=== PATIENT | female | born 2005 | race Caucasian/White ===

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

== ENCOUNTER 2023-08-24 15:21 | Outpatient (REF) | payer MEDICAID, SELFPAY | END 2023-08-24 15:22 | disposition home or self-care (01) | LOC: NCHCN 15:21 | PROVIDERS: PCP Student in an Organized Health Care Education/Training Program; Visit Provider Physician Assistant Medical | DX: J03.90 Acute tonsillitis, unspecified (principal) | CPT/HCPCS: 87077; 87070 ==

== ENCOUNTER 2023-09-05 11:39 | Emergency (ER) | payer MEDICAID, SELFPAY ==
[2023-09-05 11:41] VITALS: BP 123/80; PULSE 104; RESP 18; TEMP 36.8; O2SAT 98
--- NOTE | 2023-09-05 13:30 | ED.GENADUL_ITS ---
Discharge Plan Disposition Patient Disposition: Home Condition: Good Discharge Details Clinical Impression: Dental implant pain, Dental infection Primary Care Provider: Sherin Whitney ED Provider: Christine Pascual Home Meds and New Rx's Prescriptions: New penicillin V potassium 500 mg tablet 500 mg PO TID 5 Days Qty: 15 0RF Continued acetaminophen [Tylenol Extra Strength] 500 MG tablet 2 tab PO PRN PRN ferrous sulfate [Feosol] 325 mg (65 mg iron) tablet 325 mg PO QDAY Discharge Instructions Instructions: Dental Pain, Tooth Abscess ED Additional Instructions: I am unable to visualize any type of abscess. However, I am concerned for dental infection given the progression in your history of implant in this area. Please try to brush your teeth at least twice per day patient remained. Is also help with care of your gingiva. Please follow-up with dentist soon as pos sible for reevaluation and definitive care. Please take the antibiotics as prescribed. Even if symptoms improve, please take the entire course. If you develop any fever/chills, swelling or other new/worsening symptoms, please seek care urgently once again. Referrals: Sherin Whitney MD [Primary Care Provider] - [facility] General Date/Time Provider Initiated Documentation: 09/05/23 11:45 . Limitations to Documentation: no limitations . Information obtained by: patient and RN notes reviewed . History of Present Illness 18 year old F presents to the emergency department with the chief complaint of right frontal dental pain, described as severe, Quality is described as stabbing, and is localized to the mouth. Patient reports radiation to (to right maxillary sinus). Patient started experiencing this day(s) (2) and it has been constant. No relieving factors improve symptom(s), No exacerbating factors reported . Patient notes no other symptoms.. Patient did receive the following treatments prior to arrival, none Related Data Home Medications Medication Instructions Recorded Confirmed acetaminophen 500 mg tablet 2 tab PO PRN PRN 11/02/17 09/05/23 (Tylenol Extra Strength) ferrous sulfate 325 mg (65 mg 325 mg PO QDAY 09/05/23 09/05/23 iron) tablet (Feosol) penicillin V potassium 500 mg 500 mg PO TID 5 days #15 tabs 09/05/23 tablet Previous Rx's Medication Instructions Recorded penicillin V potassium 500 mg 500 mg PO TID 5 days #15 tabs 09/05/23 tablet Allergies Allergy/AdvReac Type Severity Reaction Status Date / Time prochlorperazine AdvReac Intermediate Other (See Verified 09/05/23 11:43 [From Compazine] Comment) General Stated Complaint: DentalOral RADHA: 4 Review of Systems Constitutional Constitutional: Reports as per HPI, Denies chills, Denies fever(s) and Denies headache(s) Eyes Eyes: Denies change in vision and Denies irritation ENT Ears, Nose, Mouth, and Throat: Reports as per HPI, Reports dental pain, Denies dysphagia, Denies dry mouth, Denies otalgia, Reports facial pain, Denies headache(s), Denies hoarseness, Denies nasal congestion, Denies odynophagia and Denies sore throat Cardiovascular Cardiovascular: Reports as per HPI and Denies chest pain Respiratory Respiratory: Reports as per HPI and Denies cough Gastrointestinal Gastrointestinal: Denies dysphagia and Denies odynophagia Integumentary/Breasts Skin/Breast: Reports as per HPI, Denies erythema, Denies rash and Denies skin pain Neurologic Neurologic: Reports as per HPI and Denies headache(s) Exam Const General: cooperative, healthy appearing, comfortable, no acute distress, well developed and well groomed Nutritional Appearance: average body habitus and well nourished Orientation: alert and awake [facility] Head: normal to inspection, normocephalic and atraumatic Ears: hearing grossly normal bilaterally, external ears normal and TM's normal bilaterally General nose exam: external nose normal and nares normal Face and sinus: normal facial exam, sinuses nontender and face symmetric Teeth and gingiva: caries, fair dentition and other (pain along lingual side #7 tooth, no swelling or fluctuance) Throat: posterior oropharynx normal, tonsils normal and uvula midline Eyes General: appearance normal, both eyes and all related structures Neck Neck: normal visual inspection, full ROM, no lymphadenopathy, supple and no anterior neck swelling Resp Effort & Inspection: normal respiratory effort, able to speak in complete sentences and no respiratory distress Cardio Rate: regular rate Rhythm: regular rhythm Skin General skin exam: no rashes or lesions noted Trauma: no lacerations or abrasions Neuro General: patient alert and patient awake Cognition: normal cognition Speech: speech normal Gait: normal gait Course Vital Signs Vital signs: Vital Signs Temperature 36.8 C 09/05/23 11:41 Pulse 104 H 09/05/23 11:41 Respiratory Rate 18 09/05/23 11:41 Blood Pressure 123/80 09/05/23 11:41 Pulse Oximetry 98 09/05/23 11:41 Temperature 36.8 C 09/05/23 11:41 Temperature Source Core 09/05/23 11:41 Pulse 104 H 09/05/23 11:41 Respiratory Rate 18 09/05/23 11:41 Respiratory Effort Normal, Non-Labored 09/05/23 11:44 Blood Pressure 123/80 09/05/23 11:41 Blood Pressure Position Sitting 09/05/23 11:41 Pulse Oximetry 98 09/05/23 11:41 Oxygen Delivery Method Room Air 09/05/23 11:41 Oxygen Flow Rate 0 09/05/23 11:41 Pain Level 10 09/05/23 11:41 Medical Decision Making Patient is a 18-year-old female presenting today with chief complaint of right frontal dental pain. Patient has remote history of multiple dental fractures requiring The Front 3 Teeth. Pain Began a Few Days Ago and Has Been Steadily Increasing. She Does Not Have an Active Dentist, Is Requesting Her Records from Her Previous Dentist to new location. She denies fevers/chills. Is concerned that she has another tooth growing in above the #7 that is pushing downward. Has had issues with dentition for years per patient report. Denies , LMP 1 wk ago. On exam, patient appears non-toxic. Hemodynamically stable, afebrile. No obvious facial swelling. Pain with palpation over the lingual side of the #7 tooth that has cap in place. Fiar dentition, signficant plaque, encouraged brushing. Po ssible gingivitis with the plaque build up but no swelling, fluctuance to suggest abscess. She does reprot that pain radiates into right maxillary sinus but not reproducible on exam. Noprmal posterior oropharynx, no change in voice, no swelling under tongue. Will treat for possible infection. Wondering if the cap over the tooht is increasing risk of infection while limiting my physical exam. Will treat with pen VK. Encouraged definitive care with dentist. Offered topical pain relief which patient declined. Advised NSAId and APAP. Encouraged hydration and dental care. Return precautions discussed. All of her questions and concerns were addressed, she is in agreement with this plan. 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 Medical History Acne Oral contraceptive use Snoring Vision problem WEARS GLASSES Surgical History Tooth extraction Social History Smoking/Tobacco Use Status: Current every day Tobacco Type: e-cigarettes Smoking risk assessment performed?: Yes Alcohol Intake: never Drug use: Daily Substance use type: marijuana Do you feel safe at home: Yes Do you feel safe in your relationship?: Yes Female Reproductive History Menstrual Age of Menarche: 10 Duration of menses: 6-7 days History History 0 Para Hx # Term Pregnancies Multiple births Hx # Pregnancies Ectopic pregnancies AB induced Hx Number of Living Children AB spontaneous
[2023-09-05 13:57] VITALS: BP 123/80; PULSE 104; PULSE 96; RESP 16; RESP 18; TEMP 36.8; O2SAT 98
== END 2023-09-05 13:59 | disposition home or self-care (01) ==
PROVIDERS: Emergency Provider Physician Assistant; PCP Student in an Organized Health Care Education/Training Program
DX: K08.89 Other specified disorders of teeth and supporting structures (principal); K04.7 Periapical abscess without sinus
CPT/HCPCS: 99283

== ENCOUNTER 2023-10-06 09:48 | Emergency (ER) | payer SELFPAY ==
[2023-10-06 09:50] VITALS: BP 109/71; PULSE 90; RESP 14; TEMP 37.2; O2SAT 96
[2023-10-06 09:58] VITALS: BP 109/71; PULSE 90; RESP 14; TEMP 37.2; O2SAT 96
--- NOTE | 2023-10-06 10:15 | ED.GENADUL_ITS ---
Discharge Plan Disposition Patient Disposition: Home Condition: Good Discharge Details Clinical Impression: Acute pharyngitis Primary Care Provider: Sherin Whitney ED Provider: Christine Pascual Home Meds and New Rx's Prescriptions: Continued acetaminophen [Tylenol Extra Strength] 500 MG tablet 2 tab PO PRN PRN ferrous sulfate [Feosol] 325 mg (65 mg iron) tablet 325 mg PO QDAY Discharge Instructions Instructions: Sore Throat, Adult ED Additional Instructions: Your strep testing was negative here today. This is likely viral illness. Please encourage hydration. May use Tylenol and ibuprofen as needed to help with discomfort. May also try rvre-raz-fqiyudt lozenges, the Mucinex plus pain relief can be of benefit and have good numbing effect. There is also gsap-bcn-kdygodh sprays if that would be helpful. May advance her diet as tolerated. If you develop difficulty breathing, inability stay hydrated or other new/worsening symptoms please seek care urgently once again. Otherwise, please follow-up with primary care in 1 to 2 weeks for reevaluation. You received one dose of steroids here which may help with some of the tonsil swelling. This may take several hours to have full effect. Referrals: Sherin Whitney MD [Primary Care Provider] - [facility] General Date/Time Provider Initiated Documentation: 10/06/23 09:54 . Limitations to Documentation: no limitations . Information obtained by: patient and RN notes reviewed . History of Present Illness 18 year old F presents to the emergency department with the chief complaint of sore throat, described as moderate and similar to prior episodes (reports was treated for strep one month ago), Quality is described as burning, and is localized to the mouth (throat). Patient reports no radiation. Patient started experiencing this day(s) (2) and it has been constant. No relieving factors improve symptom(s), Eating worsens symptoms . Patient notes loss of appetite (associates with sore throat and not wanting to eat and cause pain); denies chest pain, cough, fever/chills, nausea/vomiting, rash and shortness of breath. Patient did receive the following treatments prior to arrival, none Related Data Home Medications ?Medication ?Instructions ?Recorded ?Confirmed acetaminophen 500 mg tablet 2 tab PO PRN PRN 11/02/17 10/06/23 (Tylenol Extra Strength) ferrous sulfate 325 mg (65 mg 325 mg PO QDAY 09/05/23 10/06/23 iron) tablet (Feosol) Allergies Allergy/AdvReac Type Severity Reaction Status Date / Time prochlorperazine (From AdvReac Intermediate Other (See Verified 10/06/23 09:54 Compazine) Comment) General Stated Complaint: Sorethroat RADHA: 4 Review of Systems Constitutional Constitutional: Reports as per HPI and Denies headache(s) Eyes Eyes: Reports as per HPI, Denies eye discharge and Denies irritation ENT Ears, Nose, Mouth, and Throat: Reports as per HPI and Denies headache(s) Cardiovascular Cardiovascular: Reports as per HPI, Denies chest pain and Denies dyspnea Respiratory Respiratory: Reports as per HPI and Denies dyspnea Gastrointestinal Gastrointestinal: Reports as per HPI, Denies abdominal pain, Denies change in bowel habits, Denies nausea and Denies vomiting Integumentary/Breasts Skin/Breast: Reports as per HPI and Denies rash Neurologic Neurologic: Reports as per HPI and Denies headache(s) Exam Const General: cooperative, healthy appearing, comfortable, no acute distress, well developed and well groomed Nutritional Appearance: average body habitus and well nourished Orientation: alert and awake [facility] Head: normal to inspection, normocephalic and atraumatic Ears: hearing grossly normal bilaterally, external ears normal and TM's normal bilaterally General nose exam: external nose normal and nares normal Face and sinus: normal facial exam, sinuses nontender and face symmetric Mouth: oral mucosae normal, lip normal, tongue normal, oropharynx normal and moist mucous membranes Teeth and gingiva: dentition normal Throat: uvula midline, abnormal tonsil bilaterally erythema, exudates and hypert rophy 2+, no peritonsillar masses, uvula not displaced and no uvular edema Eyes General: appearance normal, both eyes and all related structures Neck Neck: normal visual inspection and full ROM Resp Effort & Inspection: normal respiratory effort, able to speak in complete sentences and no respiratory distress Auscultation: clear to auscultation bilaterally, no rales, no rhonchi and no wheezes Cardio Rate: regular rate Rhythm: regular rhythm Heart Sounds: S1 normal and S2 normal GI Inspection: normal to inspection Palpation: soft, no splenomegaly and nontender Skin General skin exam: no rashes or lesions noted Neuro General: patient alert and patient awake Cognition: normal cognition Speech: speech normal Gait: normal gait Psych Appearance: grossly normal and well kempt Mental Status: mental status grossly normal Speech and Movement: speech and movement normal Course Vital Signs Vital signs: Vital Signs Temperature 37.2 C 10/06/23 09:50 Pulse 90 10/06/23 09:50 Respiratory Rate 14 10/06/23 09:50 Blood Pressure 109/71 10/06/23 09:50 Pulse Oximetry 96 10/06/23 09:50 Temperature 37.2 C 10/06/23 09:58 Temperature Source Skin 10/06/23 09:58 Pulse 90 10/06/23 09:58 Respiratory Rate 14 10/06/23 09:58 Respiratory Effort Normal, Non-Labored 10/06/23 09:58 Blood Pressure 109/71 10/06/23 09:58 Blood Pressure Position Sitting 10/06/23 09:58 Pulse Oximetry 96 10/06/23 09:58 Oxygen Delivery Method Room Air 10/06/23 09:58 Oxygen Flow Rate 0 10/06/23 09:58 Pain Level 8 10/06/23 09:58 Lab/Test Results Lab/Test Results: 10/06/23 09:51 Tonsil - Not Specified Group A Streptococcus Culture - Pending POC Strep Test-DAGOBERTO(Rapid) Start: 10/06/23 10:00 Freq: .Rapid Strep Test Status: Active Protocol: Document 10/06/23 10:01 MICHAEL (Rec: 10/06/23 10:01 MICHAEL [id number]) Strep test-DAGOBERTO(Rapid)-POC POC-Strep test-DAGOBERTO (Rapid) Negative POC-Strep test-DAGOBERTO (Rapid) Negative Medical Decision Making Patient is a pleasant 18-year-old female presenting today with chief complaint of sore throat. She reports this began a few days ago. She has a friend that has had similar illness. She reports that she has had some congestion but denies any significant cough. She reports that the tonsillar pain can induce her to clear her throat frequently. She denies any fevers. Denies any abdominal tenderness. No fatigue. Has not been exposed anybody with mono. While she has pain with eating and drinking, she is still able to get fluids down. Patient reports that she does have a history of strep throat, was last treated 1 month ago. He is questioning she has this again. On exam, patient appears nontoxic. She is resting comfortably no acute distress. Patient is afebrile. HEENT exam is significant for bilateral tonsillar swelling, exudates and erythema. Swelling does appear quite uncomfortable for the patient. However, she is handling secretions well. No uvular displacement or unilateral swelling to suggest peritonsillar abscess. No swelling under the tongue or elsewhere about the mouth or neck. She does have a palpable bilateral lymphadenopathy. HEENT exam otherwise normal. Lungs are clear. Abdomen is benign with no left upper quadrant tenderness. Patient's rapid strep testing was negative. Will hold off on any antibiotics at this time. I encouraged supportive care. Given the degree of discomfort as well as the degree of swelling, I did discuss steroids with the patient which she is amenable to. Will give dose of dexamethasone here. We discussed supportive care. Return precautions were discussed. Encouraged follow-up with primary care. Will call with any positive results. All of her questions and concerns were addressed and she is in agreement this plan. 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 Medical History Acne Oral contraceptive use Snoring Vision problem WEARS GLASSES Surgical History Tooth extraction Social History Smoking/Tobacco Use Status: Current every day Tobacco Type: e-cigarettes Smoking risk assessment performed?: Yes Alcohol Intake: never Drug use: Daily Substance use type: marijuana Do you feel safe at home: Yes Do you feel safe in your relationship?: Yes Female Reproductive History Menstrual Age of Menarche: 10 Duration of menses: 6-7 days History History 0 Para Hx # Term Pregnancies Multiple births Hx # Pregnancies Ectopic pregnancies AB induced Hx Number of Living Children AB spontaneous PAWSS Have you Been Recently Intoxicated or Drunk Within the Last 30 days?: No Have you Ever Experienced Previous Episodes of Alcohol Withdrawal?: No Have you ever Experienced Withdrawal Seizures?: No Have you ever Experienced Delirium Tremens(DT)s?: No Have you ever undergone Alcohol Rehabilitation Treatment (i.e, inpt ot outpatient treatment programs)?: No Have you ever Experienced Blackouts?: No Have you ever Combined Alcohol with other Downers within the last 90 days?: No Have you ever Combined Alcohol with any other Substance of Abuse during the last 90 days?: No Positive Blood Alcohol level on Presentation? [PCS.BAL]: No Evidence of Increased Autonomic Activity (i.e. HR>120, tremor, sweating, agitation, nausea)?: No Result: 0
[2023-10-06] MEDS: Dexamethasone 10 MG/ML VIAL PO (10:51)
--- NOTE | 2023-10-08 20:36 | W.ED.FU ---
Date of service: 10/08/23 Time of Service: 20:36 Follow Up Plan: Spoke with patient after her culture came back positive for strep, she is feeling better and sounds well on the phone, will send in prescription for amoxicillin to the pharmacy for her and advised to follow-up with her PCP and return precautions given
== END 2023-10-06 11:01 | disposition home or self-care (01) ==
PROVIDERS: Emergency Provider Physician Assistant; PCP Student in an Organized Health Care Education/Training Program
DX: J02.9 Acute pharyngitis, unspecified (principal); F17.290 Nicotine dependence, other tobacco product, uncomplicated
CPT/HCPCS: 87880; 99283; 87081; J1100

== ENCOUNTER 2024-01-24 08:47 | Emergency (ER) | payer BC, SELFPAY ==
[2024-01-24 08:49] VITALS: BP 118/67; PULSE 89; RESP 14; TEMP 36.8; O2SAT 98
[2024-01-24] MEDS: predniSONE 20 MG TAB 40 MG PO (09:22)
[2024-01-24] MEDS: Acetaminophen 325 MG TAB 650 MG PO (09:22)
[2024-01-24 09:28] LABS: Mono Screening Negative (Negative)
--- NOTE | 2024-01-24 14:57 | ED.GENADUL_ITS ---
Discharge Plan Disposition Patient Disposition: Home Condition: Stable Discharge Details Clinical Impression: Acute tonsillitis Primary Care Provider: Sherin Whitney ED Provider: Suad Fields Home Meds and New Rx's Prescriptions: Continued acetaminophen [Tylenol Extra Strength] 500 MG tablet 2 tab PO PRN PRN ferrous sulfate [Feosol] 325 mg (65 mg iron) tablet 325 mg PO QDAY ondansetron HCl 4 mg tablet 4 mg PO Q8H PRN Discharge Instructions Instructions: Sore Throat, Adult ED Additional Instructions: Take prednisone 40 daily for the next 3 days Take Tylenol as needed for breakthrough pain Regular fluids Please return with fever, chills, or should you have any new or worsening c omplaints Your monotest has not returned, I will notify you if it is positive I have included some information regarding mono, however at this time please know that you have not tested positive yet Referrals: Sherin Whitney MD [Primary Care Provider] - 2 days Discharge Data Discharge Date/Time-TO BE ENTERED AT DEPARTURE: 01/24/24 09:29 HPI General Date/Time Provider Initiated Documentation: 01/24/24 08:57 . HPI Narrative: This 18-year-old female who presents with 5 days of sore throat and left ear discomfort. Denies any chest pain or shortness of breath. Denies any globus sensation or chance of . States a friend was sick with mononucleosis approximately a month ago. Came in today secondary to persistence of symptoms. Denies any nausea or vomiting. Related Data Home Medications ?Medication ?Instructions ?Recorded ?Confirmed acetaminophen 500 mg tablet 2 tab PO PRN PRN 11/02/17 01/24/24 (Tylenol Extra Strength) ferrous sulfate 325 mg (65 mg 325 mg PO QDAY 09/05/23 01/24/24 iron) tablet (Feosol) ondansetron HCl 4 mg tablet 4 mg PO Q8H PRN 01/24/24 01/24/24 Allergies Allergy/AdvReac Type Severity Reaction Status Date / Time prochlorperazine (From AdvReac Intermediate Other (See Verified 01/24/24 08:54 Compazine) Comment) General Stated Complaint: Sorethroat RADHA: 4 Exam Narrative Exam Narrative: Oropharynx patent, uvula midline, submandibular lymphadenopathy, lungs clear to auscultation, maintaining secretions, tonsillar exudates on left, no evidence of abscess formation phonation within normal limits, no trismus, TMs clear bilaterally, no occipital lymphadenopathy, Course Vital Signs Vital signs: Vital Signs Temperature 36.8 C 01/24/24 08:49 Pulse 89 01/24/24 08:49 Respiratory Rate 14 01/24/24 08:49 Blood Pressure 118/67 01/24/24 08:49 Pulse Oximetry 98 01/24/24 08:49 Temperature 36.8 C 01/24/24 08:49 Temperature Source Oral 01/24/24 08:49 Pulse 89 01/24/24 08:49 Respiratory Rate 14 01/24/24 08:49 Respiratory Effort Normal, Non-Labored 01/24/24 08:52 Blood Pressure 118/67 01/24/24 08:49 Blood Pressure Position Sitting 01/24/24 08:49 Pulse Oximetry 98 01/24/24 08:49 Oxygen Delivery Method Room Air 01/24/24 08:49 Oxygen Flow Rate 0 01/24/24 08:49 Pain Level 9 01/24/24 08:49 Lab/Test Results Lab/Test Results: 01/24/24 08:58 Tonsil - Not Specified Group A Streptococcus Culture - Pending Laboratory Tests Range/Units 01/24/24 09:11 Monoscreen (Negative) Negative Medical Decision Making 18-year-old female in no acute distress, uvula midline, oropharynx patent, no trismus, strep and mononucleosis negative. Supportive care encouraged, given prednisone here and for 2 additional days at home for pain relief. Indication for antibiotics at this time, strep culture pending. Specifically no evidence of retropharyngeal abscess or peritonsillar abscess on clinical exam today. 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 Medical History Acne Oral contraceptive use Snoring Vision problem WEARS GLASSES Surgical History Tooth extraction Social History Smoking/Tobacco Use Status: Current every day Tobacco Type: e-cigarettes Smoking risk assessment performed?: Yes Alcohol Intake: never Drug use: Daily Substance use type: marijuana Housing: house Do you feel safe at home: Yes Do you feel safe in your relationship?: Yes Female Reproductive History Menstrual Age of Menarche: 10 Duration of menses: 6-7 days History History 0 Para Hx # Term Pregnancies Multiple births Hx # Pregnancies Ectopic pregnancies AB induced Hx Number of Living Children AB spontaneous
--- NOTE | 2024-01-25 08:11 | NUR.NOTE ---
Nursing Note: Received call from pt that [facility] did not have her prescription for Prednisone. Prescriber Suad Jordan made aware and is sending it electronically
== END 2024-01-24 09:29 | disposition home or self-care (01) ==
PROVIDERS: Emergency Provider Physician Assistant; PCP Student in an Organized Health Care Education/Training Program
DX: J03.90 Acute tonsillitis, unspecified (principal); F17.290 Nicotine dependence, other tobacco product, uncomplicated
CPT/HCPCS: 36415; 99283; 86308; 87081; J7512

== ENCOUNTER 2024-07-27 12:48 | Emergency (ER) | payer BC, SELFPAY ==
[2024-07-27 12:52] VITALS: BP 116/87; PULSE 137; RESP 20; TEMP 36.8; O2SAT 98
--- NOTE | 2024-07-27 13:36 | ED.GENADUL_ITS ---
Discharge Plan Disposition Patient Disposition: Home Condition: Stable Discharge Details Clinical Impression: Painful menstruation, Nausea and vomiting Primary Care Provider: Unknown,Unknown ED Provider: Kiko Madrid Home Meds and New Rx's Prescriptions: New ondansetron 4 mg tablet,disintegrating 4 mg PO Q8H PRNQty: 15 0RF Discharge Instructions Instructions: Menstrual Cramps (DC), Nausea and Vomiting, Adult ED Additional Instructions: Please follow-up with your primary care physician. Please follow-up with gastroenterology. Return to the emergency department immediately for any worsening or new concerning symptoms. Stand Alone Forms: Work Release HPI General Mode of arrival: ambulatory . Date/Time Provider Initiated Documentation: 07/27/24 12:55 . Limitations to Documentation: no limitations . Information obtained by: patient . HPI Narrative: HISTORY OF PRESENT ILLNESS The patient presents with nausea and vomiting. She experienced severe menorrhagia this morning, causing significant illness and vomiting, preventing her from attending work. She has been under considerable stress for the past 2-3 weeks due to her mother's cancer diagnosis. She is sexually active and does not have a primary care physician. She reports persistent gastrointestinal issues, including nausea and difficulty maintaining food intake, for years. Her last substantial meal was a week ago; since then, she has only consumed half a small durham of rice and a handful of chips. These symptoms have been lifelong. She was diagnosed with anemia and prescribed iron supplements, which increased her appetite but did not resolve her symptoms. She has not undergone endoscopic procedures. She uses marijuana but reports worsened symptoms, including loss of appetite and sleep disturbances, when abstaining. Of note, patient would not have sought care today other than her work required her to have a work note. Related Data Home Medications ?Medication ?Instructions ?Recorded ?Confirmed ondansetron 4 mg disintegrating 4 mg PO Q8H PRN #15 tabs 07/27/24 tablet Previous Rx's ?Medication ?Instructions ?Recorded ondansetron 4 mg disintegrating 4 mg PO Q8H PRN #15 tabs 07/27/24 tablet Allergies Allergy/AdvReac Type Severity Reaction Status Date / Time prochlorperazine (From AdvReac Intermediate Other (See Verified 07/27/24 12:59 Compazine) Comment) General Stated Complaint: Abd Prob RADHA: 3 Review of Systems All systems reviewed & are unremarkable except as noted in HPI and below Gastrointestinal Gastrointestinal: Reports nausea and Reports vomiting Exam Const General: cooperative and no acute distress [facility] Mouth: moist mucous membranes Eyes Conjunctivae: normal conjunctivae Sclera: normal sclerae Resp Auscultation: clear to auscultation bilaterally, no rales, no rhonchi and no wheezes Cardio Rate: regular rate and not tachycardic Rhythm: regular rhythm GI Palpation: soft, not firm, no guarding, no masses, not rigid and nontender Skin General skin exam: no rashes or lesions noted Neuro General: patient alert, patient awake and tone normal Extrem General: no edema Psych Appearance: grossly normal Mental Status: mental status grossly normal Affect: anxious affect Course Vital Signs Vital signs: Vital Signs Temperature 36.8 C 07/27/24 12:52 Pulse 137 H 07/27/24 12:52 Respiratory Rate 20 07/27/24 12:52 Blood Pressure 116/87 07/27/24 12:52 Pulse Oximetry 98 07/27/24 12:52 Temperature 36.8 C 07/27/24 12:52 Temperature Source Oral 07/27/24 12:52 Pulse 137 H 07/27/24 12:52 Respiratory Rate 20 07/27/24 12:52 Blood Pressure 116/87 07/27/24 12:52 Blood Pressure Position Sitting 07/27/24 12:52 Pulse Oximetry 98 07/27/24 12:52 Oxygen Delivery Method Room Air 07/27/24 12:52 Oxygen Flow Rate 0 07/27/24 12:52 Pain Level 6 07/27/24 13:06 Lab/Test Results Lab/Test Results: POC- Test(urine) Negative Medical Decision Making ASSESSMENT AND PLAN Initial Assessment: Patient presents with intense menstrual period causing significant discomfort and vomiting, nausea, lifelong difficulty keeping food down, and significant stress due to mother's cancer diagnosis. Patient anxious and tachycardic on arrival. Normotensive. On my examination heart rate 96. Differential Diagnosis: - Menorrhagia: Intense menstrual period causing significant discomfort and vomiting. Conduct urine test to rule out -related bleeding. Provide work note for today. - Nausea and vomiting: Possibly related to menstrual period and stress. Prescribe ondansetron for nausea. Advise frequent sips of fluids to maintain electrolyte balance and hydration. Further evaluation if symptoms persist. - Anemia: History of anemia and lifelong difficulty keeping food down. Iron pills increased appetite but did not resolve symptoms. Refer to director of critical care for further evaluation and management. - Stress-related issues: Significant stress due to mother's cancer diagnosis, possibly contributing to gastrointestinal symptoms. Refer to primary care physician for comprehensive health management, including stress-related issues. ED Course: - Conduct urine test to rule out -related bleeding. HCG neg. - Provide work note for today. - Prescribe ondansetron for nausea. - Discussed treatment options including IV fluid which patient declined providing informed refusal. I discussed oral rehydration and advise frequent sips of fluids to maintain electrolyte balance and hydration. - Refer to director of critical care for further evaluation and management. - Refer to primary care physician for comprehensive health management. Final Assessment: Patient's symptoms likely related to intense menstrual period, stress, and longstanding gastrointestinal issues. Treatment includes ondansetron for nausea, hydration advice, and referrals for further evaluation. Clinical Impression: - Menorrhagia - Nausea and vomiting - Stress-related issues Disposition: - Discharge - Follow-Up: Refer to director of critical care and primary care physician for further evaluation and management. Patient Education: Advised frequent sips of fluids to maintain electrolyte balance and hydration. Discussed potential hypersensitivity to marijuana and recommended trying a break period. MDM Components Evaluation: - Number of Differential Diagnoses or Management Options: Menorrhagia, Nausea and vomiting, Anemia, Stress-related issues - Amount and Complexity of Data Reviewed: Urine test, patient history - Risk of Complication and Morbidity or Mortality: Risk of dehydration and electrolyte imbalance due to vomiting and difficulty keeping food down. Stress- related exacerbation of gastrointestinal symptoms. This document was written with the assistance of MICHELLE Valero. The patient consented to its use. 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 Medical History Snoring Acne Vision problem WEARS GLASSES Surgical History Tooth extraction Social History Smoking/Tobacco Use Status: Current every day Tobacco Type: cigarettes Years smoked: 1 Smoking risk assessment performed?: Yes Alcohol Intake: current Alcohol Intake frequency: a few times a week Alcohol type: beer and hard liquor Drug use: Daily Substance use type: marijuana Housing: house Do you feel safe at home: Yes Do you feel safe in your relationship?: Yes Female Reproductive History Menstrual Age of Menarche: 10 Duration of menses: 6-7 days History History 0 Para Hx # Term Pregnancies Multiple births Hx # Pregnancies Ectopic pregnancies AB induced Hx Number of Living Children AB spontaneous
== END 2024-07-27 14:23 | disposition home or self-care (01) ==
PROVIDERS: Emergency Provider Student in an Organized Health Care Education/Training Program
DX: N94.6 Dysmenorrhea, unspecified (principal); R11.2 Nausea with vomiting, unspecified
CPT/HCPCS: 81025; 99283

== ENCOUNTER 2024-08-21 20:41 | Emergency (ER) | payer BC, SELFPAY ==
[2024-08-21 20:44] VITALS: BP 127/69; PULSE 68; RESP 24; TEMP 36.7; O2SAT 98
--- NOTE | 2024-08-21 20:59 | ED.GENADUL_ITS ---
Discharge Plan Disposition Patient Disposition: Home Condition: Stable Discharge Details Clinical Impression: Pain due to dental caries Primary Care Provider: Unknown,Unknown ED Provider: Kelley Skelton Home Meds and New Rx's Prescriptions: New amoxicillin-pot clavulanate 875-125 mg tablet 1 tab PO BID 10 Days Qty: 20 0RF oxycodone-acetaminophen [Percocet] 5-325 mg tablet 1 tab PO Q6H PRN (Reason: pain) Qty: 4 0RF Rx Instructions: Take one tablet every 6 hours as needed for severe pain. No Action ondansetron 4 mg tablet,disintegrating 4 mg PO Q8H PRNQty: 15 0RF Discharge Instructions Instructions: Dental Pain ED Additional Instructions: Please use the HurriCaine gel to 3 times daily as needed. Take the antibiotic with yogurt or a probiotic as directed. Take the pain medication for moderate to severe pain. Do not drive while taking the medication. Please see a Dentist. Follow up with primary care provider in 3-5 days. Return to ED sooner if any worsening or concerns. Please take Ibuprofen with food every 4-6 hours as needed for pain and swelling. Stand Alone Forms: Work Release Referrals: Primary Care Provider [Outside, Family Practice] - 2 weeks HPI General Mode of arrival: ambulatory . Date/Time Provider Initiated Documentation: 08/21/24 20:45 . Limitations to Documentation: no limitations . Information obtained by: patient, RN notes reviewed and old records reviewed . HPI Narrative: 19-year-old right upper molar pain. Patient reports that she was told she needed this tooth pulled approximately a year ago but never had the procedure done. Reports that last few days pain has been increasing, no area of fluctuance or abscess noted. Speaking in full sentences no facial swelling. She does have dental michael with the nerve exposed. I did offer the calcium hydroxide filling but patient declined. Related Data Home Medications ?Medication ?Instructions ?Recorded ?Confirmed ondansetron 4 mg disintegrating 4 mg PO Q8H PRN #15 ta bs 07/27/24 08/21/24 tablet amoxicillin 875 mg-potassium 1 tab PO BID 10 days #20 tabs 08/21/24 clavulanate 125 mg tablet oxycodone-acetaminophen 5 mg-325 1 tab PO Q6H PRN pain #4 tabs 08/21/24 mg tablet (Percocet) Previous Rx's ?Medication ?Instructions ?Recorded ondansetron 4 mg disintegrating 4 mg PO Q8H PRN #15 ta bs 07/27/24 tablet amoxicillin 875 mg-potassium 1 tab PO BID 10 days #20 tabs 08/21/24 clavulanate 125 mg tablet oxycodone-acetaminophen 5 mg-325 1 tab PO Q6H PRN pain #4 tabs 08/21/24 mg tablet (Percocet) Allergies Allergy/AdvReac Type Severity Reaction Status Date / Time prochlorperazine (From AdvReac Intermediate Other (See Verified 08/21/24 20:48 Compazine) Comment) General Stated Complaint: DentalOral RADHA: 4 Review of Systems ENT Ears, Nose, Mouth, and Throat: Reports dental pain Exam [facility] Teeth and gingiva: caries (Number 3) Teeth image: 2 1. Dental Michael with pulp exposed. Throat: posterior oropharynx normal and tonsils normal Course Vital Signs Vital signs: Vital Signs Temperature 36.7 C 08/21/24 20:44 Pulse 68 08/21/24 20:44 Respiratory Rate 24 08/21/24 20:44 Blood Pressure 127/69 08/21/24 20:44 Pulse Oximetry 98 08/21/24 20:44 Temperature 36.7 C 08/21/24 20:44 Temperature Source Oral 08/21/24 20:44 Pulse 68 08/21/24 20:44 Respiratory Rate 24 08/21/24 20:44 Blood Pressure 127/69 08/21/24 20:44 Blood Pressure Position Sitting 08/21/24 20:44 Pulse Oximetry 98 08/21/24 20:44 Oxygen Delivery Method Room Air 08/21/24 20:44 Oxygen Flow Rate 0 08/21/24 20:44 Pain Level 10 08/21/24 20:44 Medical Decision Making 19-year-old right upper molar pain. Patient reports that she was told she needed this tooth pulled approximately a year ago but never had the procedure done. Reports that last few days pain has been increasing, no area of fluctuance or abscess noted. Speaking in full sentences no facial swelling. Noted a dental michael with the nerve exposed. I did offer the calcium hydroxide filling but patient declined. No trismus, no fever. Will give HurriCaine gel, Augmentin twice daily, and percocet to go home with. This text was generated using Nuance dictation system, please disregard any oddities of phrase or misspellings. 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 Medical History Snoring Acne Vision problem WEARS GLASSES Surgical History Tooth extraction Social History Smoking/Tobacco Use Status: Current every day Tobacco Type: cigarettes Years smoked: 1 Smoking risk assessment performed?: Yes Alcohol Intake: current Alcohol Intake frequency: a few times a week Alcohol type: beer and hard liquor Drug use: Daily Substance use type: marijuana Housing: house Do you feel safe at home: Yes Do you feel safe in your relationship?: Yes Female Reproductive History Menstrual Age of Menarche: 10 Duration of menses: 6-7 days History History 2 0 Para Hx # Term Pregnancies Multiple births Hx # Pregnancies Ectopic pregnancies AB induced Hx Number of Living Children AB spontaneous
[2024-08-21] MEDS: Amoxicillin 875/Clav. 125 TAB PO (21:14)
[2024-08-21] MEDS: oxyCODONE 5 mg/Acetaminophen 325 mg TAB 1 TAB PO (21:14)
[2024-08-21] MEDS: Benzocaine 20% Gel 30 GM JAR MM (21:14)
[2024-08-21] MEDS: Amox. 875/Clav. 125, 2 TABS/BTL 1 TAB PO (21:14)
== END 2024-08-21 21:21 | disposition home or self-care (01) ==
PROVIDERS: Emergency Provider Registered Nurse Emergency
DX: R68.84 Jaw pain; K02.63 Dental caries on smooth surface penetrating into pulp
CPT/HCPCS: 99283 ×2

== ENCOUNTER 2024-11-17 16:57 | Outpatient (REF) | payer BC, SELFPAY | END 2024-11-17 16:58 | disposition home or self-care (01) | LOC: NCHCN 16:57 | PROVIDERS: Visit Provider Nurse Practitioner Family | DX: R11.2 Nausea with vomiting, unspecified (principal) | CPT/HCPCS: 87077; 87086; 87186 ==

== ENCOUNTER 2025-02-28 09:45 | Emergency (ER) | payer BC, SELFPAY ==
[2025-02-28 09:50] VITALS: BP 119/71; PULSE 112; RESP 22; TEMP 36.3; O2SAT 99
[2025-02-28 10:07] VITALS: BP 108/73; PULSE 98; RESP 22; O2SAT 98
[2025-02-28 10:10] LABS: Abs Immature Grans 0.01 10^3/uL (0.0-0.06); HCT 39.9 % (36.0-46.0); HGB 13.9 g/dL (11.2-15.7); Immature Grans % 0.2 %; MCH 30.7 pg (27.0-33.0); MCHC 34.8 % (32.0-36.0); MCV 88 fL (80-95); MPV 10.4 fL (8.0-11.0); Platelet Count 252 10^3/uL (130-400); RBC 4.53 10^6/uL (3.93-5.22); RDW 12.7 % (11.7-14.6); RDW-SD 41.1 fL; WBC 6.28 10^3/uL (4.4-10.8)
--- NOTE | 2025-02-28 10:15 | RT.EKG_ITS ---
APPROVED REPORT Exam: Resting ECG Reason for Exam: L lower chest pain Patient Location: E HR:85 bpm ECG Measurements Heart Rate 85 AXIS OK 116 P 72 QRSd 83 QRS 82 QT 392 T 79 QTc 461 Conclusion Sinus rhythm...normal P axis, V-rate 60- 99 Atrial premature complex...SV complex w/ short R-R interval Nonspecific T abnrm, anterolateral leads...T <-0.10mV, I aVL V2-V6 No STEMI
[2025-02-28] MEDS: Normal Saline 1,000 ML 1000 ML IV (10:19)
[2025-02-28] MEDS: Pantoprazole 40 MG VIAL IVP (10:19)
[2025-02-28] MEDS: Ondansetron 4 MG/2 ML VIAL IVP (10:19)
--- NOTE | 2025-02-28 10:21 | ED.GENADUL_ITS ---
Discharge Plan Disposition Patient Disposition: Home Condition: Stable Discharge Details Clinical Impression: Rib pain on left side Primary Care Provider: None,None ED Provider: Rubin García Home Meds and New Rx's Prescriptions: Continued ondansetron 4 mg tablet,disintegrating 4 mg PO Q8H PRNQty: 15 0RF Discharge Instructions Instructions: Costochondritis, Chest Pain, Adult ED Additional Instructions: You were seen in the emergency department for your left lower rib pain versus left upper quadrant abdominal pain, your CT chest shows no acute abnormality, CT abdomen and pelvis shows no acute abnormality, your labs showed no elevation of white blood cells, no electrolyte abnormalities, no abnormalities whatsoever. There is no pneumonia, we ruled out a blood clot in your lungs with a negative D-dimer blood test, there is no elevation of cardiac enzymes, this may be musculoskeletal pain between the ribs, costochondritis versus an abdominal migraine or other pathology but your vitals are perfectly normal and we are reassured that there is no life-threat occurring. Please follow-up with your primary care provider, return for any severe acute worsening especially fever or other emergent concerns. Stand Alone Forms: Portal Information Discharge Data Discharge Date/Time-TO BE ENTERED AT DEPARTURE: 02/28/25 13:00 HPI General Date/Time Provider Initiated Documentation: 02/28/25 09:56 . HPI Narrative: 19 year-old female presents to ED today by POV/ambulating with her boyfriend with a chief complaint of L lower rib/LUQ pain, severe and sharp with onset yesterday- then she had nausea/vomiting. Quality described as sharp pain, no radiation to hemoptysis, cough, shortness of breath, central chest pain, diarrhea, dysuria, bowel changes. Severity is described as severe. Palliating factors include nothing specific attempted. Provoking factors include nothing specific. Patient not anticoagulated. Related Data Home Medications ?Medication ?Instructions ?Recorded ?Confirmed ondansetron 4 mg disintegrating 4 mg PO Q8H PRN #15 ta bs 07/27/24 02/28/25 tablet Previous Rx's ?Medication ?Instructions ?Recorded ondansetron 4 mg disintegrating 4 mg PO Q8H PRN #15 ta bs 07/27/24 tablet Allergies Allergy/AdvReac Type Severity Reaction Status Date / Time prochlorperazine (From AdvReac Intermediate Other (See Verified 02/28/25 09:53 Compazine) Comment) General Stated Complaint: Nausea/Vomit/Diar RADHA: 3 Review of Systems All systems reviewed & are unremarkable except as noted in HPI and below Exam Narrative Exam Narrative: GENERAL APPEARANCE: Well-nourished, non-toxic, awake and alert, atraumatic, no acute distress. SKIN: Warm, pink, dry, intact, without rashes/lesions/ulcerations. HEAD: Normocephalic, atraumatic, normal hair distribution for gender/age. EYES: Normal conjunctiva, no exudates on lids/lashes. ENT: Nares patent, no circumoral cyanosis, no facial swelling NECK: Supple, trachea midline, painless cervical ROM. LUNGS/CHEST: Lungs CTA bilaterally-no adventitious lung sounds diffusely, no focally diminished or absent lung sounds, non-labored respirations, normal A/P diameter, symmetrical expansion, no chest wall deformity, left axillary tenderness in the rib cage without crepitus HEART (CV/PV): Regular rate and rhythm without murmur, no peripheral edema, no JVD. ABDOMEN: Soft, non-distended, no guarding left upper quadrant tenderness without rebound tenderness, no epigastric tenderness, no CVA tenderness to percussion bilaterally, negative Pearson sign. MSK: Normal ROM, no swelling/deformity to bilateral UEs or LEs, moving all extremities without weakness, no cyanosis, spine midline without tenderness, normal curvature. NEURO: Mental Status AAOx4 - alert to person, place, time, events No facial droop, no forehead involvement. Motor: No focal weakness - strength 5/5 in bilateral UEs and LEs, proximal and distal, symmetric. Sensory: sensation intact to light touch globally. Gait normal: patient ambulated without ataxia into ED room. PSYCH: euthymic, cooperative, pleasant, appropriate speech Course Vital Signs Vital signs: Vital Signs Temperature 36.3 C L 02/28/25 09:50 Pulse 112 H 02/28/25 09:50 Respiratory Rate 22 02/28/25 09:50 Blood Pressure 119/71 02/28/25 09:50 Pulse Oximetry 99 02/28/25 09:50 Temperature 36.3 C L 02/28/25 09:50 Temperature Source Oral 02/28/25 09:50 Pulse 98 H 02/28/25 10:07 Respiratory Rate 22 02/28/25 10:07 Blood Pressure 108/73 02/28/25 10:07 Blood Pressure Mean 84 02/28/25 10:07 Blood Pressure Position Sitting 02/28/25 09:50 Pulse Oximetry 98 02/28/25 10:07 Oxygen Delivery Method Room Air 02/28/25 10:07 Oxygen Flow Rate 0 02/28/25 10:07 Pain Level 9 02/28/25 09:50 Lab/Test Results Lab/Test Results: Laboratory Tests Range/Units 02/28/25 10:01 WBC (4.4-10.8) 10^3/uL 6.28 RBC (3.93-5.22) 10^6/uL 4.53 Hgb (11.2-15.7) g/dL 13.9 Hct (36.0-46.0) % 39.9 MCV (80-95) fL 88 MCH (27.0-33.0) pg 30.7 MCHC (32.0-36.0) % 34.8 RDW (11.7-14.6) % 12.7 Plt Count (130-400) 10^3/uL 252 MPV (8.0-11.0) fL 10.4 Immature Gran % % 0.2 Neutrophils % % 63.3 Lymphocytes % % 28.7 Monocytes % % 6.7 Eosinophils % % 0.6 Basophils % % 0.5 Nucleated RBC % (0.0-0.3) % 0.0 Absolute Neutrophils (1.2-6.7) 10^3/uL 3.98 Absolute Lymphocytes (1.2-3.4) 10^3/uL 1.80 Absolute Monocytes (0.1-0.8) 10^3/uL 0.42 Absolute Eosinophils (0.0-0.7) 10^3/uL 0.04 Absolute Basophils (0.0-0.2) 10^3/uL 0.03 VBG Lactate (<or=2.0) mmol/L 1.0 Medical Decision Making This dictation utilizes [id number] dictation software and may contain unedited grammatical errors. 19 year-old female presents to ED today by POV/ambulating with her boyfriend with a chief complaint of L lower rib/LUQ pain, severe and sharp with onset yesterday- then she had nausea/vomiting. Quality described as sharp pain, no radiation to hemoptysis, cough, shortness of breath, central chest pain, diarrhea, dysuria, bowel changes. Severity is described as severe. Palliating factors include nothing specific attempted. Provoking factors include nothing specific. Patients' medical history: Oral contraceptive use. Family and social history: Noncontributory. Pertinent exam findings / vital signs include tachycardic on arrival at 112, left axillary tenderness versus left upper quadrant tenderness without rebound tenderness, no CVA tenderness percussion bilaterally, lung sounds clear diffusely with no focally diminished or absent lung sounds. Differential / pathologies of concern include pneumothorax, PE, colitis versus gastroenteritis, ACS, pneumonia. Diagnostic studies of: - CBC, CMP, lactate, D-dimer, magnesium, troponin, BNP, lipase, EKG, CT chest without contrast, CT ABD/pelvis with contrast. - CBC shows no acute abnormality - D-dimer negative - Lactate 1.0 - CMP with only mild low potassium which was repleted with 40 mill equivalents p.o. and will replete with normal p.o. intake - Magnesium within normal limits - Troponin negative with reliable onset - BNP negative - Lipase negative - CT chest without any findings - CT ABD/pelvis without any acute findings - EKG shows sinus rhythm at 85 bpm after being roomed in the ED, P waves followed by narrow complex QRS with normal axis, normal intervals, no ST changes or abnormalities, has slight T wave inversion in V2, no priors Interventions of: - IVF 1 L NS, 1 g p.o. Tylenol, 10 mg p.o. Toradol, 40 mill equivalents p.o. potassium, 40 mg IV Protonix, 4 mg IV Zofran. ED Course/Assessment/Plan: 19-year-old female presents with right axillary lower rib tenderness, pain with deep inspiration, versus left upper quadrant tenderness with some nausea starting yesterday, her cardiac workup is negative, D-dimer negative low PERC score, CT chest shows no pneumonia or pneumothorax, CT ABD/pelvis shows no acute findings within the abdominal organs, her labs are completely benign, counseled her that this is possibly costochondritis versus abdominal muscle strain from vomiting, counseled on applying heat to the area and take Tylenol and ibuprofen, strict return criteria for any emergent concerns. Findings not consistent with ACS, PE, pneumothorax, severe enteritis or colitis, electrolyte abnormality, pancreatitis. Disposition of Rib Pain on Left Side. Patient verbalized understanding of the plan and return to ED criteria and engaged in shared decision making. Medical Records Medical records reviewed: Yes I reviewed the patient's medical records. Imaging Data Radiologic Study: Attestation: I personally reviewed and interpreted this imaging study as follows: Imaging: CT Scan Radiologist's impression: Exam: CT Chest Without Contrast; Diagnostic Exam date and time: 02/28/2025 11:33 AM Age: 19 years old Clinical indication: Pain; Left-sided TECHNIQUE: Imaging protocol: Diagnostic computed tomography of the chest without contrast. 3D rendering (Not supervised by radiologist): MIP and/or 3D reconstructed images were created by the technologist. COMPARISON: CT NECK W 06/14/2020 4:04 PM FINDINGS: Lungs: Unremarkable. No consolidation. No masses. Pleural spaces: Unremarkable. No pneumothorax. No pleural effusion. Heart: Unremarkable. No cardiomegaly. No pericardial effusion. Coronary arteries: No coronary artery calcification. Lymph nodes: Unremarkable. No enlarged lymph nodes. Vasculature: Unremarkable. No aortic aneurysm. Bones/joints: Unremarkable. No acute fracture. Soft tissues: Unremarkable. IMPRESSION: No acute findings. Dictated and Authenticated by: Vianey Shin MD. Radiologic Study #2: Attestation: I personally reviewed and interpreted this imaging study as follows: Imaging: CT Scan Radiologist's impression: Exam: CT Abdomen And Pelvis With Contrast Exam date and time: 02/28/2025 11:35 AM Age: 19 years old Clinical indication: Abdominal pain; Localized; Left lower quadrant (llq) TECHNIQUE: Imaging protocol: Computed tomography of the abdomen and pelvis with contrast. Contrast material: OMNI 350; Contrast volume: 65 ml; Contrast route: INTRAVENOUS (IV); COMPARISON: CT CHEST WO 02/28/2025 11:33 AM FINDINGS: Liver: Normal. No mass. Gallbladder and biliary ducts: Normal. No calcified stones. No ductal dilation. Pancreas: Normal. No ductal dilation. Spleen: Normal. No splenomegaly. Adrenal glands: Normal. No mass. Kidneys and ureters: Normal. No hydronephrosis. Stomach and bowel: Intraluminal hyperdensity in the stomach and small bowel, likely ingested. No bowel wall thickening or obstruction. Appendix: No evidence of appendicitis. Intraperitoneal space: Unremarkable. No free air. No significant fluid collection. Vasculature: Unremarkable. No abdominal aortic aneurysm. Lymph nodes: Unremarkable. No enlarged lymph nodes. Urinary bladder: Unremarkable as visualized. Reproductive: Unremarkable as visualized. Bones/joints: Unremarkable. No acute fracture. Soft tissues: Unremarkable. IMPRESSION: No acute findings. Dictated and Authenticated by: Vianey Shin MD. Lab Data Lab results reviewed: Yes I reviewed the patient's lab results. Labs: Laboratory Tests Range/Units 02/28/25 02/28/25 10:01 10:34 WBC (4.4-10.8) 10^3/uL 6.28 RBC (3.93-5.22) 10^6/uL 4.53 Hgb (11.2-15.7) g/dL 13.9 Hct (36.0-46.0) % 39.9 MCV (80-95) fL 88 MCH (27.0-33.0) pg 30.7 MCHC (32.0-36.0) % 34.8 RDW (11.7-14.6) % 12.7 Plt Count (130-400) 10^3/uL 252 MPV (8.0-11.0) fL 10.4 Immature Gran % % 0.2 Neutrophils % % 63.3 Lymphocytes % % 28.7 Monocytes % % 6.7 Eosinophils % % 0.6 Basophils % % 0.5 Nucleated RBC % (0.0-0.3) % 0.0 Absolute Neutrophils (1.2-6.7) 10^3/uL 3.98 Absolute Lymphocytes (1.2-3.4) 10^3/uL 1.80 Absolute Monocytes (0.1-0.8) 10^3/uL 0.42 Absolute Eosinophils (0.0-0.7) 10^3/uL 0.04 Absolute Basophils (0.0-0.2) 10^3/uL 0.03 D-Dimer (<500) ng/mlFEU 236 VBG Lactate (<or=2.0) mmol/L 1.0 Sodium (136-145) mmol/L 143 Potassium (3.5-5.1) mmol/L 3.2 L Chloride (98-107) mmol/L 106 Carbon Dioxide (20.0-31.0) mmol/L 25.6 Anion Gap (3-11) mmol/L 11.4 H BUN (9-23) mg/dL 10 Creatinine (0.55-1.02) mg/dL 0.70 Est GFR (CKD-EPI 2020) (mL/min/1.73m2) 104.96 Glucose (74-106) mg/dL 99 Calcium (8.3-10.6) mg/dL 10.1 Magnesium (1.6-2.6) mg/dL 1.8 Total Bilirubin (0.2-1.2) mg/dL 1.0 AST (<34) U/L 28 ALT (10-49) U/L 13 Alkaline Phosphatase (46-116) U/L 115 Troponin I (<35) ng/L < 3 NT-Pro-B Natriuret Pep (<300) pg/mL 83 Total Protein (5.7-8.2) g/dL 8.0 Albumin (3.2-5.0) g/dL 4.7 Lipase (<53) U/L 25 PFSH All Active Problems (Updated 02/28/25 @ 12:43 by GUNJAN Mendez) Rib pain on left side (Acute) Decrease in appetite (Acute) Weight loss (Acute) Scoliosis concern (Acute) Globus sensation (Acute) Thyroid nodule (Acute) Tracheal calcification (Acute) Strep throat (Acute) Oral contraceptive use (Acute) 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 Medical History Snoring Acne Vision problem WEARS GLASSES Surgical History Tooth extraction Social History Smoking/Tobacco Use Status: Current every day Tobacco Type: cigarettes Years smoked: 1 Smoking risk assessment performed?: Yes Alcohol Intake: current Alcohol Intake frequency: a few times a week Alcohol type: beer and hard liquor Drug use: Daily Substance use type: marijuana Housing: house Do you feel safe at home: Yes Do you feel safe in your relationship?: Yes Female Reproductive History Menstrual Age of Menarche: 10 Duration of menses: 6-7 days History History 0 Para Hx # Term Pregnancies Multiple births Hx # Pregnancies Ectopic pregnancies AB induced Hx Number of Living Children AB spontaneous
[2025-02-28 10:30] LABS: ALT 13 U/L (10-49); AST 28 U/L (<34); Albumin 4.7 g/dL (3.2-5.0); Alkaline Phosphatase 115 U/L (46-116); Anion Gap 11.4 mmol/L (3-11); BUN 10 mg/dL (9-23); Bilirubin, Total 1.0 mg/dL (0.2-1.2); CO2 25.6 mmol/L (20.0-31.0); Calcium 10.1 mg/dL (8.3-10.6); Chloride 106 mmol/L (98-107); Glucose 99 mg/dL (74-106); Lipase 25 U/L (<53); Magnesium 1.8 mg/dL (1.6-2.6); Potassium 3.2 mmol/L (3.5-5.1); Sodium 143 mmol/L (136-145); Total Protein 8.0 g/dL (5.7-8.2)
[2025-02-28 10:40] VITALS: BP 95/57; PULSE 78; RESP 22; O2SAT 98
[2025-02-28 10:56] LABS: Troponin I < 3 ng/L (<35)
[2025-02-28] MEDS: Potassium Chloride 20 MEQ TABCR 40 MEQ PO (11:02)
[2025-02-28 11:10] LABS: D-Dimer 236 ng/mlFEU (<500)
--- NOTE | 2025-02-28 11:15 | DI.CT_ITS ---
Exam(s) CT CHEST WO EXAM: CT CHEST WO CLINICAL HISTORY: L lower rib pain. TECHNIQUE: Multi planar reconstructions were performed. CONTRAST MATERIAL: None COMPARISON: No exams were available for comparison FINDINGS: CHEST: LUNGS: No evidence of infiltrate or lung contusion or pleural effusion and there is no evidence of pneumothorax. No findings in trachea and mainstem bronchi. No rib fractures identified. MEDIASTINUM: There is no obvious hilar nor mediastinal adenopathy. Density in the anterior fat triangle is most probably remnant thymus tissue at this age group.No supraclavicular adenopathy. No axillary adenopathy. Visualized thyroid unremarkable. CARDIAC: Heart size is normal. There is no pericardial effusion.Caliber of the thoracic aorta is within normal limits. VISUALIZED UPPER ABDOMEN: No significant findings. OSSEOUS: No fractures. Benign bone island is noted in the anterior aspect of L1 vertebral body. No ominous osseous lesion. IMPRESSION: 1. No significant findings on this noninfused CT scan of the chest. Also no rib fractures. 2. 3. RADIATION DOSE DELIVERED: 146.35mGy.cm Total DLP DATA REPOSITORY: All CT scans at this facility are submitted to the National Radiology Data Registry (NRDR) Dose Index Registry (DIR) with the [employer] (A[employer]). RADIATION OPTIMIZATION: All CT scans at this facility use at least one of these dose optimization techniques: automated exposure control; mA and/or kV adjustment per patient size (includes targeted exams where dose is matched to clinical indication); or iterative reconstruction.
--- NOTE | 2025-02-28 11:15 | DI.CT_ITS ---
Exam(s) CT ABDOMEN PELVIS W EXAM: CT ABDOMEN PELVIS W CLINICAL HISTORY: LUQ tenderness. TECHNIQUE: Imaging Protocol: Axial computed tomography images with coronal and sagittal reformatted images were created and reviewed CONTRAST MATERIAL: Intravenous: Omnipaque-350 65cc Oral: None COMPARISON: No exams were available for comparison FINDINGS: VISUALIZED LUNG BASES: No nodules nor pleural effusions evident. ABDOMEN: There is no ascites. LIVER: There are no significant focal hepatic lesions evident. Some fatty changes noted in the medial right hepatic lobe adjacent to the inter lobar fissure, typical location for this finding. GALLBLADDER/BILIARY: No obvious gallbladder pathology. CBD is not dilated. PANCREAS: No evidence of pancreatic mass nor dilatation of the pancreatic duct. SPLEEN: Normal size. No significant lesions. Splenic and portal veins are patent. ADRENALS: There are no significant adrenal masses. KIDNEYS:No cysts evident. No solid renal masses. No calculi nor hydronephrosis.. ABDOMINAL AORTA: Abdominal aorta is not enlarged. LYMPH NODES:There is no retroperitoneal nor paraaortic adenopathy. ABDOMINAL WALL: No evidence of significant anterior abdominal wall nor inguinal hernia. GI: There is no evidence of bowel obstruction, free air, nor abscess. PELVIS: GI: No evidence of appendicitis.No evidence of sigmoid diverticulitis. LYMPH NODES: There is no intrapelvic nor inguinal adenopathy. REPRODUCTIVE: Uterus and ovaries appear age-appropriate. Cystic follicles in both ovaries evident. There is a cyst in left ovary which measures 1.1 x 1.0 cm. No free fluid. URINARY BLADDER: No calculi nor obvious masses evident OSSEOUS: No fractures and no significant osseous lesions. IMPRESSION: 1. No significant acute findings in the abdomen and pelvis. Preliminary the right report was reviewed. RADIATION DOSE DELIVERED: 231.2mGy.cm Total DLP DATA REPOSITORY: All CT scans at this facility are submitted to the National Radiology Data Registry (NRDR) Dose Index Registry (DIR) with the [employer] (ACR). RADIATION OPTIMIZATION: All CT scans at this facility use at least one of these dose optimization techniques: automated exposure control; mA and/or kV adjustment per patient size (includes targeted exams where dose is matched to clinical indication); or iterative reconstruction.
[2025-02-28 11:17] VITALS: BP 104/74; PULSE 82; RESP 20; O2SAT 98
[2025-02-28] MEDS: Normal Saline Flush 10 ML SYR IVP (11:38)
[2025-02-28] MEDS: Omnipaque 350 MG/ML 100 ML BTL IJ (11:39)
[2025-02-28] MEDS: Normal Saline - Diluent 50 ML VIAL IJ (11:39)
[2025-02-28 12:22] VITALS: BP 115/60; PULSE 77; O2SAT 100
--- NOTE | 2025-02-28 12:27 | DI.VRAD_ITS ---
PROCEDURE INFORMATION: Exam: CT Chest Without Contrast; Diagnostic Exam date and time: 02/28/2025 11:33 AM Age: 19 years old Clinical indication: Pain; Left-sided TECHNIQUE: Imaging protocol: Diagnostic computed tomography of the chest without contrast. 3D rendering (Not supervised by radiologist): MIP and/or 3D reconstructed images were created by the technologist. COMPARISON: CT NECK W 06/14/2020 4:04 PM FINDINGS: Lungs: Unremarkable. No consolidation. No masses. Pleural spaces: Unremarkable. No pneumothorax. No pleural effusion. Heart: Unremarkable. No cardiomegaly. No pericardial effusion. Coronary arteries: No coronary artery calcification. Lymph nodes: Unremarkable. No enlarged lymph nodes. Vasculature: Unremarkable. No aortic aneurysm. Bones/joints: Unremarkable. No acute fracture. Soft tissues: Unremarkable. IMPRESSION: No acute findings. Dictated and Authenticated by: Vianey Shin MD. Orderin Ricky Conklin MD
[2025-02-28 12:31] VITALS: BP 110/79; PULSE 85; O2SAT 100
--- NOTE | 2025-02-28 12:37 | DI.VRAD_ITS ---
PROCEDURE INFORMATION: Exam: CT Abdomen And Pelvis With Contrast Exam date and time: 02/28/2025 11:35 AM Age: 19 years old Clinical indication: Abdominal pain; Localized; Left lower quadrant (llq) TECHNIQUE: Imaging protocol: Computed tomography of the abdomen and pelvis with contrast. Contrast material: OMNI 350; Contrast volume: 65 ml; Contrast route: INTRAVENOUS (IV); COMPARISON: CT CHEST WO 02/28/2025 11:33 AM FINDINGS: Liver: Normal. No mass. Gallbladder and biliary ducts: Normal. No calcified stones. No ductal dilation. Pancreas: Normal. No ductal dilation. Spleen: Normal. No splenomegaly. Adrenal glands: Normal. No mass. Kidneys and ureters: Normal. No hydronephrosis. Stomach and bowel: Intraluminal hyperdensity in the stomach and small bowel, likely ingested. No bowel wall thickening or obstruction. Appendix: No evidence of appendicitis. Intraperitoneal space: Unremarkable. No free air. No significant fluid collection. Vasculature: Unremarkable. No abdominal aortic aneurysm. Lymph nodes: Unremarkable. No enlarged lymph nodes. Urinary bladder: Unremarkable as visualized. Reproductive: Unremarkable as visualized. Bones/joints: Unremarkable. No acute fracture. Soft tissues: Unremarkable. IMPRESSION: No acute findings. Dictated and Authenticated by: Vianey Shin MD. Orderin Ricky Conklin MD
[2025-02-28] MEDS: Ketorolac 10 MG TAB PO (12:50)
[2025-02-28] MEDS: Acetaminophen 500 MG TAB 1000 MG PO (12:50)
== END 2025-02-28 13:00 | disposition home or self-care (01) ==
PROVIDERS: General Practice; Emergency Provider Physician Assistant
DX: R07.89 Other chest pain (principal); R10.12 Left upper quadrant pain; R11.2 Nausea with vomiting, unspecified
CPT/HCPCS: 71250; 80053; 83690; 93005; 96361; 96374; 96375; 99285; 74177; 83605; 83735; 83880; 84484; 85025; 85379; 93010; 99284; J2405; J2470; J3490